=== PATIENT | male | born 1985 | race American Indian/Alaskan Native ===

== ENCOUNTER 2016-11-14 06:21 | Emergency (ER) | payer SELFPAY ==
[2016-11-14 06:32] VITALS: BP 107/72
[2016-11-14] MEDS ORDERED: MOTRIN PO ONE (07:58)
--- NOTE | 2016-11-14 08:03 | Emergency Department Report ---
ED Back Pain/Injury HPI - General Chief Complaint: Extremity Injury, Upper Stated Complaint: OBJECT FELL ON BACK/PAIN Time Seen by Provider: 11/14/16 07:19 Source: patient Mode of arrival: Ambulatory Limitations: No Limitations - History of Present Illness Initial Comments: PT states he was at work last night and he was working on a middle case on a pallet and the top case fell and landed on his back. PT states the injury occurred at midnight. PT states he took Tylenol and he kept working. PT state his pain feels worse this am. PT states the pain is worse with movement. MD Complaint: back injury Onset/Timin -: Sudden, hour(s) Similar Symptoms Previously: No Place: work Radiation: none Severity: severe Severity scale (0 -10): 7 Quality: sharp Consistency: constant Improves With: other (rest- pt can find comfortable postitions ) Worsens With: movement, other (palpation ) Context: trauma Associated Symptoms: denies other symptoms. denies: weakness, difficulty walking, difficulty urinating, incontinence, fever/chills, abdominal pain, nausea/vomiting, shortness of breath, syncope - Related Data Previous Rx's Medication Instructions Recorded Last Taken Type Ibuprofen [Motrin] 600 mg PO Q8H PRN #15 tablet 11/14/16 Unknown Rx methOCARBAMOL [Robaxin TAB] 500 mg PO Q6H PRN #15 tablet 11/14/16 Unknown Rx Allergies Allergy/AdvReac Type Severity Reaction Status Date / Time No Known Allergies Allergy Unverified 11/14/16 06:33 ED Review of Systems ROS: Stated complaint: OBJECT FELL ON BACK/PAIN Other details as noted in HPI Comment: All other systems reviewed and negative Respiratory: denies: shortness of breath, SOB with exertion, SOB at rest Gastrointestinal: denies: abdominal pain, nausea, vomiting Musculoskeletal: back pain ED Past Medical Hx - Past Medical History Previous Medical History?: No - Surgical History Additional Surgical History: left thumb - Social History Smoking Status: Current Every Day Smoker Substance Use Type: None - Medications Home Medications: Home Medications Medication Instructions Recorded Confirmed Last Taken Type Ibuprofen [Motrin] 600 mg PO Q8H PRN #15 tablet 11/14/16 Unknown Rx methOCARBAMOL [Robaxin TAB] 500 mg PO Q6H PRN #15 tablet 11/14/16 Unknown Rx ED Physical Exam - General Limitations: No Limitations General appearance: alert, in no apparent distress - Head Head exam: Present: atraumatic, normocephalic, normal inspection - Eye Eye exam: Present: normal appearance, PERRL, EOMI. Absent: conjunctival injection - ENT ENT exam: Present: normal exam, normal external ear exam - Neck Neck exam: Present: normal inspection, full ROM, other (no post midline c-spine tenderness). Absent: tenderness - Respiratory Respiratory exam: Present: normal lung sounds bilaterally. Absent: respiratory distress, chest wall tenderness, accessory muscle use, decreased breath sounds - Cardiovascular Cardiovascular Exam: Present: regular rate, normal rhythm, normal heart sounds - GI/Abdominal GI/Abdominal exam: Present: soft. Absent: tenderness - Extremities Exam Extremities exam: Present: normal inspection, full ROM - Back Exam Back exam: Present: normal inspection, full ROM, tenderness, vertebral tenderness (to t spine ). Absent: CVA tenderness (R), CVA tenderness (L), muscle spasm, paraspinal tenderness - Neurological Exam Neurological exam: Present: alert, oriented X3, normal gait - Psychiatric Psychiatric exam: Present: normal affect, normal mood - Skin Skin exam: Present: warm, dry, intact ED Course Vital Signs 11/14/16 11/14/16 06:29 08:16 Temperature 97.9 F Pulse Rate 86 Respiratory 18 16 Rate Blood Pressure 107/72 O2 Sat by Pulse 100 Oximetry - Reevaluation(s) Reevaluation #1: 11/14/16 09:33 PT states he is feeling better. PT aware of XR results. PT has no questions at this time. - Pulse Oximetry Interpretation Digit-Finger Initial Pulse Oximetry Readin Actions Taken: none ED Medical Decision Making - Radiology Data Radiology results: report reviewed XR T-spine-NAP - Differential Diagnosis fracture, contusion, strain Critical Care Time: No Critical care attestation.: If time is entered above; I have spent that time in minutes in the direct care of this critically ill patient, excluding procedure time. ED Disposition Clinical Impression: Back injury Qualifiers: Encounter type: initial encounter Qualified Code(s): S39.92XA - Unspecified injury of lower back, initial encounter Disposition: DISCHARGED TO HOME OR SELFCARE Is pt being admited?: No Does the pt Need Aspirin: No Condition: Stable Instructions: Back Pain (ED) Additional Instructions: No driving or ETOH after taking Robaxin Follow up with PCP/ Workers comp Prescriptions: Ibuprofen [Motrin] 600 mg PO Q8H PRN #15 tablet PRN Reason: Pain methOCARBAMOL [Robaxin TAB] 500 mg PO Q6H PRN #15 tablet PRN Reason: Muscle Spasm Referrals: PRIMARY CARE, [Primary Care Provider] - 3-5 Days MARGARITO NEWBERRY MD [Staff Physician] - 3-5 Days TITO RODRIGUEZ MD [Staff Physician] - 3-5 Days Forms: Work/School Release Form(ED) Time of Disposition: 09:35
--- NOTE | 2016-11-14 09:17 | XRay Report ---
THORACIC SPINE: History: Pain, injury. The bones are normally mineralized with well preserved vertebral height, alignment and interspace distances. Minimal spondylosis is noted. No paraspinal soft tissue widening is noted. IMPRESSION: No evidence for acute injury.
== END 2016-11-14 09:48 | disposition home or self-care (01) ==
LOC: ED 06:21
DX: S29.9XXA Unspecified injury of thorax, initial encounter (principal); F17.200 Nicotine dependence, unspecified, uncomplicated; W18.30XA Fall on same level, unspecified, initial encounter; Y93.89 Activity, other specified; Y92.89 Other specified places as the place of occurrence of the external cause; Y99.8 Other external cause status
CPT/HCPCS: 72070; 99283